=== PATIENT | female | born 1995 | race Caucasian/White ===

== ENCOUNTER 2024-01-24 16:16 | Emergency (ER) | payer BC ==
[~2024-01-24] VITALS: Ht 165.1 cm; Wt 61.0 kg
[2024-01-24 16:20] VITALS: O2SAT 100
[2024-01-24 16:24] VITALS: BP 141/67; PULSE 76; RESP 18; TEMP 36.83628; O2SAT 100
[2024-01-24] MEDS ORDERED: DIPH28.34 TP (16:42)
[2024-01-24] MEDS ORDERED: MUPI15CR11 TP (16:42)
== END 2024-01-24 16:45 | disposition home or self-care (01) ==
LOC: ER 16:16
DX: L01.00 Impetigo, unspecified (principal); R21 Rash and other nonspecific skin eruption
CPT/HCPCS: 99282